=== PATIENT | male | born 1960 | race Two or more races ===

== ENCOUNTER 2018-11-30 15:26 | Emergency (ER) | payer MEDICAID ==
[~2018-11-30] VITALS: Ht 193 cm; Wt 96.0 kg
[2018-11-30 21:52] LABS: CLARITY URINE CLEAR (CLEAR); COLOR URINE DARK YELLOW (YELLOW); KETONES URINE NEGATIVE (NEGATIVE); LEUKOCYTE ESTERASE URINE NEGATIVE (NEGATIVE); NITRITE URINE NEGATIVE (NEGATIVE); OCCULT BLOOD URINE NEGATIVE (NEGATIVE); PROTEIN URINE NEGATIVE (NEGATIVE); SPECIFIC GRAVITY URINE 1.017 (1.005-1.030)
[2018-11-30] MEDS ORDERED: MORPHINE SULFATE 4 MG/ML CPJ (NOT FOR IM USE) IV STA (21:56)
[2018-11-30] MEDS ORDERED: SODIUM CHLORIDE 0.9% 1,000 ML IV ONE (21:56)
[2018-11-30] MEDS ORDERED: ONDANSETRON HCL 4MG/2ML INJ IV STA (21:56)
[2018-11-30 22:58] LABS: EOSINOPHILS % 4.8 % (0.0-5.0); HEMATOCRIT. 31.2 % (42.0-52.0); HEMOGLOBIN. 10.4 g/dL (14.0-18.0); LYMPHOCYTES % 27.9 % (20.0-50.0); MEAN CORPUSCULAR HEMOGLOBIN 28.8 pg (28.0-32.0); MEAN CORPUSCULAR VOLUME 86.3 fL (80.0-94.0); MEAN PLATELET VOLUME 7.9 fl (7.4-10.4); MONOCYTES % 10.2 % (2.0-8.0); NEUTROPHILS % 55.1 % (40.0-76.0); PLATELET 129 x1000/uL (130-400); RED BLOOD CELL COUNT 3.62 mill/uL (4.7-6.1); RED CELL DISTRIBUTION WIDTH 13.5 % (11.6-14.6)
[2018-11-30 23:03] LABS: CHLORIDE 101 mEq/L (98-107)
[2018-11-30 23:06] LABS: INR 1.1; PROTHROMBIN TIME 11.3 sec (9.1-11.1)
[2018-11-30 23:07] LABS: ETHANOL BLOOD < 10 mg/dL
[2018-12-01] MEDS ORDERED: IOHEXOL-300 100 ML BOTTLE ONE (00:12)
[2018-12-01 02:23] VITALS: BP 112/53
== END 2018-12-01 02:30 | disposition home or self-care (01) ==
LOC: ER 15:26
DX: K52.9 Noninfective gastroenteritis and colitis, unspecified (principal); N13.30 Unspecified hydronephrosis; G62.9 Polyneuropathy, unspecified; K76.9 Liver disease, unspecified
CPT/HCPCS: 36415; 74177; 80053; 81003; 83690; 85025; 85610; 87186; 96361; 96374; 96375; 99284; J2270; J2405; J7030; Q9967; Z7610

== ENCOUNTER 2019-08-29 14:08 | Emergency (ER) | payer MEDICAID ==
[~2019-08-29] VITALS: Ht 193 cm; Wt 100.0 kg
[2019-08-29] MEDS ORDERED: FAMOTIDINE 20MG/2ML VIAL IV STA (15:04)
[2019-08-29] MEDS ORDERED: ONDANSETRON HCL 4MG/2ML INJ IV STA (15:04)
[2019-08-29] MEDS ORDERED: MORPHINE SULFATE 4 MG/ML CPJ (NOT FOR IM USE) IV STA (15:04)
[2019-08-29] MEDS ORDERED: SODIUM CHLORIDE 0.9% 1,000 ML IV ONE (15:04)
[2019-08-29 16:11] LABS: HEMATOCRIT. 36.5 % (42.0-52.0); HEMOGLOBIN. 12.3 g/dL (14.0-18.0); LYMPHOCYTES % 15.9 % (20.0-50.0); MEAN CORPUSCULAR HEMOGLOBIN 29.6 pg (28.0-32.0); MEAN CORPUSCULAR VOLUME 87.4 fL (80.0-94.0); MEAN PLATELET VOLUME 8.8 fl (7.4-10.4); NEUTROPHILS % 76.1 % (40.0-76.0); PLATELET 100 x1000/uL (130-400); RED BLOOD CELL COUNT 4.17 mill/uL (4.7-6.1); RED CELL DISTRIBUTION WIDTH 13.5 % (11.6-14.6)
[2019-08-29 16:14] LABS: CHLORIDE 105 mEq/L (98-107); INR 1.1; PROTHROMBIN TIME 11.4 sec (9.6-11.0)
[2019-08-29 16:31] LABS: CLARITY URINE CLEAR (CLEAR); COLOR URINE YELLOW (YELLOW); KETONES URINE NEGATIVE (NEGATIVE); LEUKOCYTE ESTERASE URINE NEGATIVE (NEGATIVE); NITRITE URINE NEGATIVE (NEGATIVE); OCCULT BLOOD URINE NEGATIVE (NEGATIVE); PROTEIN URINE NEGATIVE (NEGATIVE); SPECIFIC GRAVITY URINE 1.007 (1.005-1.030); UROBILINOGEN URINE 0.2 E.U./dL (0.2-1.0)
[2019-08-29] MEDS ORDERED: SODIUM CHLORIDE 0.9% 1000ML BAG (SEPSIS BOLUS) IV ONE (16:45)
[2019-08-29] MEDS ORDERED: MORPHINE SULFATE 2 MG/ML CPJ (NOT FOR IM USE) IV ONE (17:00)
[2019-08-29] MEDS ORDERED: SODIUM CHLORIDE 0.9% 3,000 ML IV SCH (17:15)
[2019-08-29 17:30] VITALS: BP 110/57
== END 2019-08-29 19:15 | disposition left against medical advice (07) ==
LOC: ER 14:08 → EDBEDREQTM 17:05 → EDBEDREQ 17:05 → EDBEDREQSVC 17:05 → ENRESERV 19:14 → ER 19:15 → CANBEDREQ 22:46
DX: R10.13 Epigastric pain (principal); E87.2 Acidosis; K76.9 Liver disease, unspecified; Z87.19 Personal history of other diseases of the digestive system; Z98.890 Other specified postprocedural states
CPT/HCPCS: 36415; 71045; 80053; 81003; 83605; 83690; 85025; 85610; 87040; 93005; 96361; 96374; 96375; 96376; 99284; J2270; J2405; J3490; J7030

== ENCOUNTER 2019-11-21 16:15 | Emergency (ER) | payer MEDICAID ==
[~2019-11-21] VITALS: Ht 193 cm; Wt 100.0 kg
[2019-11-21] MEDS ORDERED: KETOROLAC 60MG/2ML VIAL IM STA (18:11)
[2019-11-21 18:22] LABS: BASOPHILS % 1.4 % (0.0-2.0); EOSINOPHILS % 4.4 % (0.0-5.0); HEMATOCRIT. 35.1 % (42.0-52.0); HEMOGLOBIN. 11.8 g/dL (14.0-18.0); LYMPHOCYTES % 23.5 % (20.0-50.0); MEAN CORPUSCULAR HEMOGLOBIN 29.3 pg (28.0-32.0); MEAN CORPUSCULAR VOLUME 87.1 fL (80.0-94.0); MEAN PLATELET VOLUME 8.9 fl (7.4-10.4); MONOCYTES % 7.6 % (2.0-8.0); NEUTROPHILS % 63.1 % (40.0-76.0); PLATELET 140 x1000/uL (130-400); RED BLOOD CELL COUNT 4.03 mill/uL (4.7-6.1); RED CELL DISTRIBUTION WIDTH 14.2 % (11.6-14.6)
[2019-11-21 18:28] LABS: CHLORIDE 102 mEq/L (98-107)
[2019-11-21] MEDS ORDERED: MORPHINE SULFATE 10 MG/ML CPJ IM ONE (19:15)
[2019-11-21 20:18] VITALS: BP 122/74
== END 2019-11-21 20:19 | disposition home or self-care (01) ==
LOC: ER 16:20
DX: G62.89 Other specified polyneuropathies (principal); N28.9 Disorder of kidney and ureter, unspecified; E83.51 Hypocalcemia
CPT/HCPCS: 36415; 80053; 83690; 85025; 93005; 93970; 96372; 99284; J1885; J2270